=== PATIENT | female | born 1965 | race Caucasian/White ===

== ENCOUNTER → 2020-12-12 08:49 | Outpatient (BNVA) | payer BC, SELFPAY | PROVIDERS: PCP Internal Medicine; Visit Provider Physician Assistant ==

== ENCOUNTER 2021-03-10 07:55 | Day surgery (SDC) | payer BC, SELFPAY ==
[2021-03-10 08:44] VITALS: PULSE 81; RESP 20; TEMP 36.1; O2SAT 95; BMI 37.0
--- NOTE | 2021-03-10 08:50 | HO.ANESPROP2 ---
[facility] Active Problems Active Problems: All Active Problems (Updated 03/10/21 @ 08:37 by Mikayla Hidalgo RN) Encounter for screening colonoscopy (Acute) Past Medical History Medical History Hypertension Functional capacity: independent ambulation Patient : No Family History Family History Unknown No family history of colorectal cancer Family history of problems with anesthesia: No Surgical History Surgical History History of cholecystectomy Hx of section Social History Social History (Updated 12/12/20 @ 09:44 by Elida Wiley PA-C) Household Members: Spouse Household Members Other:: 2 kids Alcohol intake: never Patient Tobacco Use Status: Never used Tobacco Use of substances other than those prescribed or required for medical reasons: No Are you DNR?: No Advance Directives: No Advance Directives Information Provided: No Current occupational status: unemployed Meds Allergies Allergy/AdvReac Type Severity Reaction Status Date / Time prochlorperazine Allergy Severe Seizure Verified 03/10/21 08:39 [From Compazine] Home Medications Medication Instructions Recorded Confirmed Last Taken Type chlorthalidone 25 mg tablet 1 tab PO DAILY 03/10/21 03/10/21 Unknown History Exam Exam Date and Time: March 10, 2021 0850 Height,Weight and Vital Signs: Height 5 ft 4 in Weight 97.976 kg Last Vital Signs Temp 96.9 F 03/10/21 08:44 Pulse 81 03/10/21 08:44 Resp 20 03/10/21 08:44 Pulse Ox 95 03/10/21 08:44 Assessment and Plan Final Anesthetic Review Family History of Problems with Anesthesia: No
--- NOTE | 2021-03-10 09:02 | MHC.SHP ---
Pre-Procedural Eval Section A Date of Service: 03/10/21 The patient is an INPATIENT: No The History & Physical has been completed within 30 days and I have reviewed it.: No Section B Chief Complaint: screening Details of Present Illness: Colon cancer screening Relevant Family History (Specify if Yes): No Relevant Social History: None Present Medications: see Short Stay Collaborative assessment Medical History: Significant History (Hypertension) History of Previous Operations: Relevant previous surgery/procedure and date(s) (Status post cholecystectomy, status post ) Allergies: Allergies Allergy/AdvReac Type Severity Reaction Status Date / Time prochlorperazine Allergy Severe Seizure Verified 03/10/21 08:39 [From Compazine] Review of Systems Sugical H&P ROS: Negative: Constitution, Cardiovascular, Respiratory and Gastrointestinal Exam Surgical H&P Exam: Normal: Heart, Normal: Lungs, Normal: Extremities and Normal: Abdomen Plan Diagnosis/Plan: Unchanged I have reviewed the history and physical and performed a pertinent physical examination on my patient. No changes have occurred unless specified.
[2021-03-10] MEDS: Lactated Ringers 1,000 ML 50 ML IVCONT (09:12)
--- NOTE | 2021-03-10 09:12 | W.PM.OPN ---
Operative Note Operative Note Date of Service: 03/10/21 Narrative: Pre-op diagnosis:?Colon cancer screening (1st colonoscopy) Post-op diagnosis:?other (Colon polyps, diverticulosis, hemorrhoids) Procedure:? COLONOSCOPY TILL CECUM WITH BIOPSIES, SNARE POLYPECTOMY, SUBMUCOSAL INJECTION Consent: Indications for the procedure and potential complications of bleeding, perforation, reaction to medications and missed diagnosis were discussed with the patient and informed consent was obtained. Instrument: Olympus PCF H 190 L variable stiffness pediatric colonoscope Monitoring: Vital signs and clinical assessment, intermittent blood pressure monitoring, continuous EKG monitoring, Pulse oximetry and Carbon Dioxide monitoring were done throughout the procedure. Colon withdrawl time was 26 minutes. Procedure: The patient was placed in the left lateral decubitis position and pre-procedure medications were administered. After a digital rectal examination of the ano-rectum, the video colonoscope was inserted into the rectum and advanced through the colon to the cecum. The colonoscope was slowly withdrawn in a retrograde panoramic fashion and the colon mucosa was carefully examined including a retroflexed view of the rectum. Findings and interventions are described below. Procedure Difficulty: Without difficulty Findings: Terminal Ileum: Not evaluated Cecum:? Normal Ascending Colon:? A 2 x 2 cms flat polyp in the mid ascending colon raised with 5 cc of Orise solution and removed with a hot snare.? Polypectomy site was marked with lupe ink. Polyp was retrieved with a Wen Net. Transverse Colon:? Normal Descending Colon:? Moderate diverticulosis Sigmoid Colon:? Severe diverticulosis with luminal narrowing. Rectum:? A 3-4 mm diminutive appearing polyp removed with a cold bx. Ano-rectum:? Small internal hemorrhoids Colon preparation: Excellent ? Impression and Post Procedure Diagnosis: Colonoscopy Findings: One large and one diminutive polyps removed Moderate to severe diverticulosis seen in the left colon Small hemorrhoids on retroflexed exam. Plan: Await pathology results Patient has an appointment on 03/24/21 in the GI Clinic with ZOE Arriaga . Repeat Colonoscopy interval based on path results - in 1 year if AC polyp is adenomatous (to check polypectomy site in AC) and 10 years if polyps are hyperplastic. Above findings were reviewed with the patient and colon polyps and diverticulosis handouts were given in the discharge area Surgeon:?Melissa Navarro MD Anesthesia:?MAC (Dr Matson) Was an Licensed Mental Health Professional used for this Procedure?:?No Licensed Mental Health Professional:?Ruthann Remy Estimated blood loss (mL):?0 Pathology:?other (a. ascending colon polyp (orise used)? b. rectal polyp) Condition:?stable Disposition:?PACU
[2021-03-10 10:02] VITALS: BP 93/59; PULSE 69; RESP 16; TEMP 36.5; O2SAT 97
[2021-03-10 10:16] VITALS: BP 117/90; PULSE 75; RESP 18; O2SAT 98
[2021-03-10 10:29] VITALS: BP 129/90; PULSE 67; RESP 18; TEMP 36.7; O2SAT 100
--- NOTE | 2021-03-10 10:30 | HO.POSTANES ---
Post Anesthesia Evaluation Post Anesthesia Evaluation Vital Signs: Vital Signs Temp Pulse Resp BP Pulse Ox 03/10/21 10:16 75 18 117/90 H 98 03/10/21 10:02 97.7 F 69 16 93/59 L 97 03/10/21 08:44 96.9 F 81 20 95 Anesthesia: Monitored Mental Status: Awake Pain Control: Satisfactory Nausea/Vomiting: None Hydration: Adequate Anesthesia-Related Issues: No Anes. Related Issues
== END 2021-03-10 10:54 | disposition home or self-care (01) ==
PROVIDERS: PCP Nurse Practitioner Family; Visit Provider Internal Medicine Gastroenterology
PROC: 0DJD8ZZ Inspection of Lower Intestinal Tract, Via Natural or Artificial Opening Endoscopic (ICD-10-PCS; CPT 45378; principal; 2021-03-10 09:20)
DX: Z12.11 Encounter for screening for malignant neoplasm of colon (principal); D12.2 Benign neoplasm of ascending colon; K62.1 Rectal polyp; K57.30 Diverticulosis of large intestine without perforation or abscess without bleeding; K64.8 Other hemorrhoids; I10 Essential (primary) hypertension; Z79.899 Other long term (current) drug therapy; Z88.8 Allergy status to other drugs, medicaments and biological substances; Z90.49 Acquired absence of other specified parts of digestive tract
CPT/HCPCS: 45385; 45380; 45381; 88305

== ENCOUNTER 2021-07-21 08:52 | Day surgery (SDC) | payer BC, SELFPAY ==
[2021-07-15 16:28] VITALS: BMI 36.6
--- NOTE | 2021-07-18 10:29 | HO.ANESPROP2 ---
Documented by User: Radha Villalba NP 07/18/21 10:32 HPI - Anesthesia Eval Consult details Narrative: 55yo F for Upper Endoscopy s/p colo 02/2021 with TIVA PMFSH Active Problems Active Problems: All Active Problems (Updated 05/08/21 @ 14:03 by Sarmad Jc MD) Encounter for screening colonoscopy (Acute) Abnormal LFTs (Acute) Past Medical History Medical History Hypertension Family History Family History Unknown No family history of colorectal cancer Family history of problems with anesthesia: No Surgical History Surgical History History of cholecystectomy History of esophagogastroduodenoscopy (EGD) Hx of section Hx of colonoscopy Hx of tubal ligation Social History Social History (Updated 12/12/20 @ 09:44 by Elida Wiley PA-C) Household Members: Spouse Household Members Other:: 2 kids Are you a primary transitions rn care coordinator to a significant other at home: Yes (2 children) Do you presently have visiting nurse or other home services: No Alcohol intake: never Patient Tobacco Use Status: Never used Tobacco Are you DNR?: No Advance Directives: No Advance Directives Information Provided: Yes Advance Directives on File: No Patient : No Current occupational status: unemployed Meds Allergies Allergy/AdvReac Type Severity Reaction Status Date / Time prochlorperazine Allergy Severe Seizure Verified 07/15/21 16:28 [From Compazine] Home Medications Medication Instructions Recorded Confirmed Last Taken Type chlorthalidone 25 mg tablet 1 tab PO DAILY 03/10/21 07/15/21 Unknown History Exam Exam Date and Time: July 18, 2021 1029 Height,Weight and Vital Signs: Height 5 ft 5 in Weight 99.79 kg Assessment and Plan Assessment Anesthesia Assessment: Chart Reviewed Final Anesthetic Review Family History of Problems with Anesthesia: No Documented by User: Jenelle Vega MD 07/21/21 10:08 [facility] Past Medical History Medical History Hypertension Family History Family History Unknown No family history of colorectal cancer Surgical History Surgical History History of cholecystectomy History of esophagogastroduodenoscopy (EGD) Hx of section Hx of colonoscopy Hx of tubal ligation History of Problems with Anesthesia: No Social History Social History (Updated 12/12/20 @ 09:44 by Elida Wiley PA-C) Household Members: Spouse Household Members Other:: 2 kids Are you a primary transitions rn care coordinator to a significant other at home: Yes (2 children) Do you presently have visiting nurse or other home services: No Alcohol intake: never Patient Tobacco Use Status: Never used Tobacco Are you DNR?: No Advance Directives: No Advance Directives Information Provided: Yes Advance Directives on File: No Patient : No Current occupational status: unemployed Meds Allergies Allergy/AdvReac Type Severity Reaction Status Date / Time prochlorperazine Allergy Severe Seizure Verified 07/15/21 16:28 [From Compazine] Home Medications Medication Instructions Recorded Confirmed Last Taken Type chlorthalidone 25 mg tablet 1 tab PO DAILY 03/10/21 07/15/21 Unknown History Exam Height,Weight and Vital Signs: Height 5 ft 5 in Weight 99.79 kg Vital Signs Temp Pulse Resp BP Pulse Ox 07/21/21 09:44 97.5 F 82 16 151/78 H 99 Airway Mallampati Class: II TM Dist: >3cm Neck ROM: Full Loose/Missing/Broken Teeth: No Heart: RRR Lungs: CTAB Assessment and Plan Assessment Anesthesia Assessment: Anesthesia Plan Discussed Final Anesthetic Review History of Problems with Anesthesia: No NPO: Yes ASA Class: II Final Preanesthetic Review: No Changes in Pt Med Stat, Meds/Allgs Chart Reviewed, Consent Obtained/Reviewed and Anes Risks/Benef Reviewed Patient Risk: Low Procedure Risk: Low Assessment/Block/Sedation in SS: Assess/Block/Sedation-SS Anesthetic Plan Anesthetic Plan: MAC: Disposition: Standard PACU
--- NOTE | 2021-07-21 09:18 | MHC.SHP ---
Pre-Procedural Eval Section A Date of Service: 07/21/21 Section B Chief Complaint: celiac disease Details of Present Illness: pos celiac serology Relevant Family History (Specify if Yes): No Relevant Social History: None Present Medications: see Short Stay Collaborative assessment Medical History: Significant History (HTN, colon polyp) History of Previous Operations: Relevant previous surgery/procedure and date(s) (History of cholecystectomy History of esophagogastroduodenoscopy (EGD) Hx of section Hx of colonoscopy Hx of tubal ligation) Allergies: Allergies Allergy/AdvReac Type Severity Reaction Status Date / Time prochlorperazine Allergy Severe Seizure Verified 07/15/21 16:28 [From Compazine] Review of Systems Sugical H&P ROS: Negative: Constitution, Cardiovascular, Respiratory, Neurological, Psychiatric, Hem-Onc, Allergic/Immunologic, Gastrointestinal, Genitourinary, Musculoskeletal, Integumentary, Endocrine and Eyes/Ears/Nose/Throat Exam Surgical H&P Exam: Normal: HEENT, Normal: Heart, Normal: Lungs, Normal: Extremities, Normal: Abdomen, Normal: Skin and Normal: Neurological Plan Diagnosis/Plan: Unchanged I have reviewed the history and physical and performed a pertinent physical examination on my patient. No changes have occurred unless specified.
[2021-07-21 09:44] VITALS: BP 151/78; PULSE 82; RESP 16; TEMP 36.4; O2SAT 99
[2021-07-21] MEDS: Lactated Ringers 1,000 ML 100 ML IVCONT (10:03)
--- NOTE | 2021-07-21 10:03 | PM.OP ---
Brief Operative Note Date of Service: 07/21/21 Pre-op diagnosis: pos celiac serology Post-op diagnosis: same Procedure: see op note Surgeon: Sarmad Jc MD Anesthesia: MAC Was an Rectifying Attendant used for this Procedure?: No Estimated blood loss (mL): 0 Condition: stable Disposition: PACU
--- NOTE | 2021-07-21 10:03 | W.PM.OPN ---
Operative Note Operative Note Date of Service: 07/21/21 Narrative: Procedure Description: EGD FLEXIBLE TRANSORAL UPPER GASTROINTESTINAL ENDOSCOPY UPPER ENDOSCOPY Consent: Indications for the procedure and potential complications of bleeding, perforation, reaction to medications and missed diagnosis were discussed with the patient and informed consent was obtained. Instrument: Olympus GIF H 190 J mid size upper endoscope Monitoring: Vital signs and clinical assessment, continuous EKG monitoring, Pulse oximetry, Carbon Dioxide monitoring and blood pressure monitoring were done throughout the procedure. Procedure: The patient was placed in the left lateral decubitis position and pre-procedure medications were administered and a bite block was placed. The endoscope was inserted into the mouth and advanced under direct vision to the third part of duodenum. A careful inspection was made as the upper endoscope was withdrawn including a retroflexed examination of the proximal stomach; Findings and interventions are described below. Findings: Larynx:normal Esophagus: GE junction at 38 cm, diaphragm hiatus at 38 cm, possible short segment barretts one tongue, bx taken, also mild inflammation at GEJ. Random esophagus bx taken in separate jar Stomach: Patchy streaky gastric erythema. Biopsies were obtained. Grade 2 flap valve on retroflexed examination of the cardia. Duodenum: Bulbar inflammation with edema and erythema, bx taken from bulb and second part in different jars Intervention: Biopsies as noted above Impression/Findings: gastritis duodenitis esophagitis possible barretts PLAN: await bx if symptomatic can try gluten free diet in the interim
[2021-07-21 10:24] VITALS: BP 111/59; PULSE 73; RESP 18; TEMP 36.3; O2SAT 100
[2021-07-21 10:39] VITALS: BP 124/67; PULSE 78; RESP 18; TEMP 36.1; O2SAT 99
== END 2021-07-21 12:13 | disposition home or self-care (01) ==
PROVIDERS: PCP Nurse Practitioner Family; Visit Provider Internal Medicine Gastroenterology
PROC: 0DJ08ZZ Inspection of Upper Intestinal Tract, Via Natural or Artificial Opening Endoscopic (ICD-10-PCS; CPT 43235; principal; 2021-07-21 10:00)
DX: K90.0 Celiac disease (principal); K86.81 Exocrine pancreatic insufficiency; K29.50 Unspecified chronic gastritis without bleeding; K20.80 Other esophagitis without bleeding; K29.80 Duodenitis without bleeding; K44.9 Diaphragmatic hernia without obstruction or gangrene; I10 Essential (primary) hypertension; Z90.49 Acquired absence of other specified parts of digestive tract; Z88.8 Allergy status to other drugs, medicaments and biological substances
CPT/HCPCS: 43239; 88305; 88342

== ENCOUNTER → 2021-10-24 09:04 | Outpatient (BNVA) | payer BC, SELFPAY | PROVIDERS: PCP Nurse Practitioner Family; Visit Provider Internal Medicine Gastroenterology | DX: Z13.89 Encounter for screening for other disorder (principal) ==

== ENCOUNTER → 2022-07-06 08:58 | Outpatient (BNVA) | payer BC, SELFPAY | PROVIDERS: PCP Nurse Practitioner Family; Visit Provider Internal Medicine Gastroenterology | DX: Z13.89 Encounter for screening for other disorder (principal) ==

== ENCOUNTER 2022-07-21 10:15 | Outpatient (REF) | payer BC, SELFPAY ==
--- NOTE | ~2022-07-21 | MM_ITS ---
EXAMINATION: BONE DENSITOMETRY CLINICAL INDICATION: Celiac disease. COMPARISON: None (current study represents initial baseline exam). TECHNIQUE: Using a VisTracks DXA System (software version: 13.1) manufactured by [employer], dual-energy x-ray absorptiometry was performed of the lumbar spine and left hip. The images are of good technical quality. Summary results are attached. FINDINGS: AP SPINE L1-L3 (excluding L4): The data of L1-L4 has been changed to exclude the L4 vertebral body, because degenerative changes at this level may cause overestimation of lumbar spine density. BMD 0.883 g/cm2, Z-score -2.8, T-score -2.4, osteopenia. LEFT FEMUR, NECK: BMD 0.752 g/cm2, Z-score -1.8, T-score -2.1, osteopenia. LEFT FEMUR, TOTAL: BMD 0.910 g/cm2, Z-score -1.0, T-score -0.8, normal. IDENTIFIED RISK FACTORS: Low calcium intake. Secondary osteoporosis (intestinal or bowel disease) disease. Menopause. HISTORY OF FRACTURE: None listed. MEDICATIONS: Calcium supplement or multivitamin. Vitamin D. MM/XR DEXA axial skeleton IMPRESSION: 1. DIAGNOSIS: Osteopenia based on the lowest T-score value of -2.4 in the lumbar spine applying World Health Organization criteria. 2. 10-YEAR FRACTURE RISK PREDICTION, FRAX: Major osteoporotic fracture (clinical spine, forearm, hip or shoulder) 7.2%. Hip fracture 0.9%. 3. Treatment Recommendations: NOF guidelines recommend consideration for treatment in postmenopausal women and men age 50 and older presenting with the following: -A hip or vertebral (clinical or morphometric) fracture. -T-score less than or equal to -2.5 at the femoral neck or spine after appropriate evaluation to exclude secondary causes. -Low bone mass at the hip or spine and a 10-year fracture probability by FRAX of greater than or equal to 3% for hip fracture or greater than or equal to 20% for major osteoporotic fracture based on the [place] adapted WHO algorithm. 4. Other Recommendations: All treatment decisions require clinical judgment and consideration of individual patient factors, including patient preferences, comorbidities, previous drug use, risk factors not captured in the FRAX model (e.g. frailty, falls, vitamin D deficiency, increased bone turnover, interval significant decline in bone density) and possible under or overestimation of fracture risk by FRAX. Additional medical evaluation for secondary cause of low bone mineral density may be appropriate. FUTURE SCAN RECOMMENDATION: People with diagnosed cases of osteoporosis or at high risk for fracture should have regular bone mineral density tests. For patients eligible for Medicare, routine testing is allowed once every 2 years. The testing frequency can be increased to one year for patients who have rapidly progressing disease, those who are receiving or discontinuing medical therapy to restore bone mass, or have additional risk factors.
== END 2022-07-21 10:16 | disposition home or self-care (01) ==
LOC: HO.MAMMO 10:15
PROVIDERS: Visit Provider Internal Medicine Gastroenterology
DX: Z13.820 Encounter for screening for osteoporosis (principal); K59.00 Constipation, unspecified; Z78.0 Asymptomatic menopausal state
CPT/HCPCS: 77080

== ENCOUNTER 2022-09-24 07:28 | Day surgery (SDC) | payer BC, SELFPAY ==
[2022-09-21 09:43] VITALS: BMI 35.9
--- NOTE | 2022-09-23 11:45 | HO.ANESPROP2 ---
Documented by User: Radha Villalba NP 09/23/22 11:46 HPI - Anesthesia Eval Consult details Narrative: 56yo F for Colonoscopy PMFSH Active Problems Active Problems: All Active Problems (Updated 10/09/21 @ 18:47 by Sarmad Jc MD) Encounter for screening colonoscopy (Acute) Abnormal LFTs (Acute) Celiac disease (Acute) Past Medical History Medical History Hypertension Family History Family History Unknown No family history of colorectal cancer Family history of problems with anesthesia: No Surgical History Surgical History H/O right knee surgery History of cholecystectomy History of esophagogastroduodenoscopy (EGD) History of tonsillectomy Hx of section Hx of colonoscopy Hx of tubal ligation History of Problems with Anesthesia: No Social History Social History Household Members: Spouse Household Members Other:: 2 kids Are you a primary healthcare translator to a significant other at home: Yes (2 children) Do you presently have visiting nurse or other home services: No Alcohol intake: never Patient Tobacco Use Status: Never used Tobacco Use of substances other than those prescribed or required for medical reasons: No Are you DNR?: No Advance Directives: No Advance Directives Information Provided: Yes Current occupational status: unemployed Meds Allergies Allergy/AdvReac Type Severity Reaction Status Date / Time prochlorperazine Allergy Severe Seizure Verified 09/24/22 07:37 [From Compazine] Home Medications Medication Instructions Recorded Confirmed Last Taken Type chlorthalidone 25 mg tablet 1 tab PO DAILY 03/10/21 09/24/22 Unknown History meloxicam 7.5 mg tablet 7.5 mg PO DAILY 07/06/22 09/24/22 Unknown History Exam Exam Date and Time: September 23, 2022 1145 Height,Weight and Vital Signs: Height 5 ft 6 in Weight 101.151 kg Assessment and Plan Assessment Anesthesia Assessment: Chart Reviewed Final Anesthetic Review Family History of Problems with Anesthesia: No History of Problems with Anesthesia: No Documented by User: Jenelle Vega MD 09/24/22 08:38 PMFSH Active Problems Active Problems: All Active Problems (Updated 10/09/21 @ 18:47 by Sarmad Jc MD) Encounter for screening colonoscopy (Acute) Abnormal LFTs (Acute) Celiac disease (Acute) Increased BMI Past Medical History Medical History Hypertension Family History Family History Unknown No family history of colorectal cancer Surgical History Surgical History H/O right knee surgery History of cholecystectomy History of esophagogastroduodenoscopy (EGD) History of tonsillectomy Hx of section Hx of colonoscopy Hx of tubal ligation Social History Social History Household Members: Spouse Household Members Other:: 2 kids Are you a primary healthcare translator to a significant other at home: Yes (2 children) Do you presently have visiting nurse or other home services: No Alcohol intake: never Patient Tobacco Use Status: Never used Tobacco Use of substances other than those prescribed or required for medical reasons: No Are you DNR?: No Advance Directives: No Advance Directives Information Provided: Yes Current occupational status: unemployed Meds Allergies Allergy/AdvReac Type Severity Reaction Status Date / Time prochlorperazine Allergy Severe Seizure Verified 09/24/22 07:37 [From Compazine] Home Medications Medication Instructions Recorded Confirmed Last Taken Type chlorthalidone 25 mg tablet 1 tab PO DAILY 03/10/21 09/24/22 Unknown History meloxicam 7.5 mg tablet 7.5 mg PO DAILY 07/06/22 09/24/22 Unknown History Exam Height,Weight and Vital Signs: Height 5 ft 6 in Weight 101.151 kg Vital Signs Temp Pulse Resp BP Pulse Ox O2 Del Method 09/24/22 07:43 98.8 F 75 16 152/86 H 99 Room Air Airway Mallampati Class: II TM Dist: >3cm Neck ROM: Full Loose/Missing/Broken Teeth: No (Denies broken, loose, missing teeth) Heart: RRR Lungs: CTAB Assessment and Plan Assessment Anesthesia Assessment: Anesthesia Plan Discussed Final Anesthetic Review NPO: Yes ASA Class: II Final Preanesthetic Review: No Changes in Pt Med Stat, Meds/Allgs Chart Reviewed, Consent Obtained/Reviewed and Anes Risks/Benef Reviewed Patient Risk: Low Procedure Risk: Low Assessment/Block/Sedation in SS: Assess/Block/Sedation-SS Anesthetic Plan Anesthetic Plan: MAC: Disposition: Standard PACU
[2022-09-24 07:38] VITALS: BMI 35.5
[2022-09-24 07:43] VITALS: BP 152/86; PULSE 75; RESP 16; TEMP 37.1; O2SAT 99
[2022-09-24] MEDS: Lactated Ringers 1,000 ML 100 ML IVCONT (08:03)
--- NOTE | 2022-09-24 08:39 | MHC.SHP ---
Pre-Procedural Eval Section A Date of Service: 09/24/22 Section B Chief Complaint: Benign neoplasm of colon, unspecified Relevant Family History (Specify if Yes): No Relevant Social History: None Present Medications: see Short Stay Collaborative assessment Medical History: Significant History (htn, celiac ) History of Previous Operations: Relevant previous surgery/procedure and date(s) (H/O right knee surgery History of cholecystectomy History of esophagogastroduodenoscopy (EGD) History of tonsillectomy Hx of section Hx of colonoscopy Hx of tubal ligation) Allergies: Allergies Allergy/AdvReac Type Severity Reaction Status Date / Time prochlorperazine Allergy Severe Seizure Verified 09/24/22 07:37 [From Compazine] Review of Systems Sugical H&P ROS: Negative: Constitution, Cardiovascular, Respiratory, Neurological, Psychiatric, Hem-Onc, Allergic/Immunologic, Gastrointestinal, Genitourinary, Musculoskeletal, Integumentary, Endocrine and Eyes/Ears/Nose/Throat Exam Surgical H&P Exam: Normal: HEENT, Normal: Heart, Normal: Lungs, Normal: Extremities, Normal: Abdomen, Normal: Skin and Normal: Neurological Plan Diagnosis/Plan: Unchanged I have reviewed the history and physical and performed a pertinent physical examination on my patient. No changes have occurred unless specified. Time Spent With Patient Time: Total time managing care of this patient today ____ minutes.
--- NOTE | 2022-09-24 08:41 | P.OP_ITS ---
Operative Note Operative Note Date of Service: 09/24/22 Narrative: Operative Information Procedure Description: Colonoscopy Indication: hx of polyps Anesthesia: MAC COLONOSCOPY Instrument: Olympus variable stiffness pediatric scope 190L Colonoscopy Monitoring: Vital signs and clinical assessment, continuous EKG monitoring, Pulse oximetry, Carbon Dioxide monitoring and blood pressure monitoring were done throughout the procedure. Colon withdrawal time was 10 minutes. Procedure: The patient was placed in the left lateral decubitis position and pre-procedure medications were administered. After a digital rectal examination of the ano-rectum, the video colonoscope was inserted into the rectum and advanced through the colon to the cecum/TI. The colonoscope was slowly withdrawn in a retrograde panoramic fashion and the colon mucosa was carefully examined including a retroflexed view of the rectum. Findings and interventions are described below. Procedure Difficulty: easy Findings: Terminal Ileum-normal Cecum:normal Ascending Colon: 6-7 mm sessile polyp removed with cold forceps, prior polypectomy site noted with tattoo, bx taken Transverse Colon -normal Descending Colon:normal Sigmoid Colon: mild diverticulosis Rectum: Retroflexion with small internal hemorrhoids, grade I Anorectum - normal Colon preparation: [place] Bowel Preparation Scale Right colon; 2 Transverse colon: 2 Left colon; 2 (0 = Unprepared colon segment with mucosa not seen due to solid stool that cannot be cleared. 1 = Portion of mucosa of the colon segment seen, but other areas of the colon segment not well seen due to staining, residual stool and/or opaque liquid. 2 = Minor amount of residual staining, small fragments of stool and/or opaque liquid, but mucosa of colon segment seen well. 3 = Entire mucosa of colon segment seen well with no residual staining, small fr agments of stool or opaque liquid) Impression and Post Procedure Diagnosis: polyp internal hemorrhoids diverticular disease Plan: High fiber diet leaflet Avoid straining at stool, epsom salts and sitz bath, anusol supps or cream Repeat Colonoscopy in 4-5 years or earlier if clinically indicated Above findings were reviewed with the patient and relevant handouts were provided if indicated.
[2022-09-24 09:19] VITALS: BP 99/61; PULSE 73; RESP 16; TEMP 36.2; O2SAT 98
[2022-09-24 09:34] VITALS: BP 112/58; PULSE 69; RESP 16; TEMP 36.2; O2SAT 100
== END 2022-09-24 09:59 | disposition home or self-care (01) ==
PROVIDERS: PCP Nurse Practitioner Family; Visit Provider Internal Medicine Gastroenterology
PROC: 0DJD8ZZ Inspection of Lower Intestinal Tract, Via Natural or Artificial Opening Endoscopic (ICD-10-PCS; CPT 45378; principal; 2022-09-24 08:30)
DX: Z12.11 Encounter for screening for malignant neoplasm of colon (principal); Z86.010 Personal history of colon polyps; K63.5 Polyp of colon; K57.30 Diverticulosis of large intestine without perforation or abscess without bleeding; K64.0 First degree hemorrhoids; I10 Essential (primary) hypertension; Z79.899 Other long term (current) drug therapy; Z88.8 Allergy status to other drugs, medicaments and biological substances; Z90.49 Acquired absence of other specified parts of digestive tract
CPT/HCPCS: 45380; 88305

== ENCOUNTER → 2022-10-09 08:59 | Outpatient (BNVA) | payer BC, SELFPAY | PROVIDERS: PCP Nurse Practitioner Family; Visit Provider Internal Medicine Gastroenterology | DX: Z13.89 Encounter for screening for other disorder (principal) ==

== ENCOUNTER → 2022-10-21 12:15 | Outpatient (BNVA) | payer BC, SELFPAY | PROVIDERS: PCP Nurse Practitioner Family; Visit Provider Dietitian, Registered | DX: K90.0 Celiac disease (principal); Z71.3 Dietary counseling and surveillance | CPT/HCPCS: 97802 ==

== ENCOUNTER 2023-07-05 14:31 | Outpatient (AMB) | payer BC, SELFPAY ==
--- NOTE | 2023-07-05 14:35 | MHC.OFFVIS ---
Intake Vital Signs 07/05/23 14:37 Height 5 ft 6 in Weight 231 lb 7.766 oz BMI 37.4 BP 161/82 H Blood Pressure Location Lt brachial Position Sitting Pulse 72 Intake Visit Reasons: 6 mnth follow up Intake Note: Arlin presents in the office as a 6 month follow up. CC: She states that she is still having issues with her celiac. She is noticing changes in her hair skin and nails. Cook Fish And Chips Required: No Allergies prochlorperazine [From Compazine] Allergy (Severe, Verified 07/05/23 14:39) Seizure HPI 6 mnth follow up HPI Details 57 yr old f here for f/u for celiac and s/p colonoscopy RECAP: Initially seen in the office for arranging screening colonoscopy flat polyp was removed 2 cm with repeat due 02/2022 she had abn LFT w/u revealed high pos celiac serology markers--TTG >70 EGD with villous blunting Colonoscopy: 09/24--diverticulosis, polyps--neg for adenoma, mucosal tissue DEXA: osteopenia noted-- T: -2.4-- INTERIM: she is in a job she doesn;t enjoy she has noted ridges in her nails hair is not as healthy feeling skin is also not as shiny no diarrhea, no constipation no blood in stool still taking multivitamin, now taking ca-vit d supplement, b vit supplement EXAM: GENERAL: The patient is well developed and nontoxic. VITAL SIGNS:see workflow HEENT: Nonicteric sclerae, PERRLA, EOMI. Oropharynx clear. Moist mucous membranes. Conjunctivae appear well perfused. No thyroid mass. CHEST: Chest wall is nontender. HEART: Regular rate and rhythm without murmurs. LUNGS: Clear to auscultation bilaterally. ABDOMEN: Soft, positive bowel sounds, nontender, no organomegaly.no flank tenderness SKIN: chronic red papules on arms, not itchy NEUROLOGIC: Cranial nerves II-XII intact without motor/sensory deficit. MS: normal A/P: 1/ Celiac disease 2/ Colon polyps 3/ osteopenia 4/ elevated alk phos, uncertain origin maybe related to celiac --breakdown has been normal 5/ stress maybe playing a role in her sx PLAN: 1/ DEXA scan later this year, cont with Vit d and ca supplement 2/ recheck labs periodically TSH , 3/ Colonoscopy-repeat in 4-5 yr 4/ might need trial of budesonide if repeat celiac Ab numbers are high PFSH Medical History Hypertension Surgical History H/O right knee surgery History of tonsillectomy History of esophagogastroduodenoscopy (EGD) Hx of colonoscopy Hx of tubal ligation History of cholecystectomy Hx of section Family History Unknown No family history of colorectal cancer Social History Household Members: Spouse Household Members Other:: 2 kids 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) Do you presently have visiting nurse or other home services: No Alcohol intake: never Patient Tobacco Use Status: Never used Tobacco Current occupational status: unemployed Physical Exam Vital Signs: Last Vital Signs Pulse 72 07/05/23 14:37 BP 161/82 H 07/05/23 14:37 BMI result Body Mass Index 37.4 Assessment & Plan Assessment & Plan (1) Celiac disease: Code(s): K90.0 - Celiac disease Plan: PLAN: 1/ DEXA scan later this year, cont with Vit d and ca supplement 2/ recheck labs periodically TSH , 3/ Colonoscopy-repeat in 4-5 yr 4/ might need trial of budesonide if repeat celiac Ab numbers are high Orders: Orders Transglutaminase Ab IgG Today G89.29 - Other chronic pain, K90.0 - Celiac disease, R10.33 - Periumbilical pain Transglutaminase IgA Today K90.0 - Celiac disease Gliadin Ab Panel Today K90.0 - Celiac disease Coding Level of Care Code Est Pt Level 4 (74871) Diagnoses Celiac disease K90.0
[2023-07-05 14:37] VITALS: BP 161/82; PULSE 72; BMI 37.4
== END 2023-07-05 15:14 | disposition home or self-care (01) ==
PROVIDERS: Visit Provider Internal Medicine Gastroenterology
DX: K90.0 Celiac disease (principal)
CPT/HCPCS: 99214

== ENCOUNTER 2023-07-05 14:31 | Outpatient (REF) | payer BC, SELFPAY ==
[2023-07-05 15:36] LABS: MANUAL DIFF FLAG NO
[2023-07-05 17:03] LABS: Basophils Absolute Auto 0.1 X10*3/uL (0.0-0.2); Basophils Percent Auto 0.8 % (0-2); Eosinophils Absolute Auto 0.1 X10*3/uL (0.0-0.4); Eosinophils Percent Auto 1.5 % (0-4); Hematocrit 40.7 % (37.0-47.0); Hemoglobin 13.6 g/dl (12.0-16.0); Imm Gran Abs Auto 0.03 X10*3/uL (0.00-0.03); Imm Gran Pct Auto 0.4 % (0.0-0.4); Lymphocytes Absolute Auto 2.7 X10*3/uL (1.2-4.9); Lymphocytes Percent Auto 34.6 % (20-40); Mean Corpuscular HGB Conc 33.4 g/dl (31.0-35.0); Mean Corpuscular Hemoglobin 30.9 pg (27.0-33.0); Mean Corpuscular Volume 92.5 fL (80.0-98.0); Mean Platelet Volume 10.6 fL (9.4-12.3); Monocytes Absolute Auto 0.4 X10*3/uL (0.1-1.2); Monocytes Percent Auto 4.7 % (2-11); Neutrophils Absolute Auto 4.5 x10*3/uL (2.0-8.3); Platelet Count 368 X10*3/uL (160-400); Red Cell Distribution Width 11.9 % (11.0-16.0); White Blood Count 7.8 X10*3/uL (4.8-10.8)
[2023-07-05 17:50] LABS: Alanine Aminotransferase 85 U/L (0-31); Albumin Level 4.1 g/dL (3.5-5.0); Alkaline Phosphatase 132 U/L (39-117); Anion Gap 12 (12-20); Aspartate Amino Transferase 73 U/L (5-31); Bilirubin Total 0.5 mg/dL (0.0-1.0); Blood Urea Nitrogen 8 mg/dL (9-16); Calcium 9.3 mg/dL (8.4-10.2); Carbon Dioxide 24 mmol/L (22-29); Chloride 108 mmol/L (96-108); Estimated Glomerular Filt Rate > 60; Glucose Random 96 mg/dL (60-115); Potassium 3.9 mmol/L (3.3-5.1); Sodium 140 mmol/L (135-145); Total Protein 7.2 g/dL (6.5-8.0)
[2023-07-05 18:08] LABS: Ferritin 274 ng/mL (10-250); TSH reflex Free T4 1.22 uIU/mL (0.32-4.0); Vitamin D 25-OH Total 31.3 ng/mL (>30)
[2023-07-05 18:21] LABS: Vitamin B12 396 pg/mL (200-900)
[2023-07-08 15:29] LABS: Gliadin Deamidated IgA Ab 1.2 U/mL; Gliadin Deamidated IgG Ab <1.0 U/mL; Transglutaminase Ab IgG <1.0 U/mL; Transglutaminase IgA 2.9 U/mL
[2023-07-09 04:43] LABS: Zinc 103 mcg/dL (60-130)
[2023-07-09 17:18] LABS: Vitamin K1 148 pg/mL (130-1500)
[2023-07-10 15:28] LABS: Vitamin B1 6 nmol/L (8-30)
[2023-07-10 16:34] LABS: Vitamin C 0.6 mg/dL (0.3-2.7)
[2023-07-10 22:13] LABS: Vitamin A 43 mcg/dL (38-98)
[2023-07-11 00:19] LABS: Alpha-Tocopherol 9.8 mg/L (5.7-19.9); Beta-Gamma Tocopherol <1.0 mg/L (<=4.3)
[2023-07-12 07:04] LABS: Vitamin B6 9.3 ng/mL (2.1-21.7)
[2023-07-14 04:54] LABS: Nicotinamide <20 ng/mL; Vit B3 - Nicotinic Acid <20 ng/mL; Vitamin B5 (Pantothenic Acid) <40 ng/mL (<275)
== END 2023-07-05 14:32 | disposition home or self-care (01) ==
LOC: HO.LAB 14:31
PROVIDERS: PCP Nurse Practitioner Family; Visit Provider Internal Medicine Gastroenterology
DX: K90.0 Celiac disease (principal); R94.5 Abnormal results of liver function studies; R10.33 Periumbilical pain; G89.29 Other chronic pain; K75.81 Nonalcoholic steatohepatitis (NASH)
CPT/HCPCS: 36415; 80053; 82180; 82306; 82607; 82728; 82746; 84207; 84425; 84443; 84446; 84590; 84591; 84597; 84630; 85025; 86258; 86364